=== PATIENT | male | born 1980 | race Two or more races ===

== ENCOUNTER 2024-05-27 00:03 | Inpatient (IN) | payer BC ==
[2024-05-27] MEDS ORDERED: ACETAMINOPHEN INJECTION 100 ML ONE (00:28)
[2024-05-27] MEDS: SODIUM CHLORIDE 1,000 ML IV STA (00:44)
[2024-05-27] MEDS: ACETAMINOPHEN 1000 MG/100 ML BAG IVPB ONE (00:44)
[2024-05-27] MEDS ORDERED: ALBUTEROL SO4 2.5/IPRATROPIUM 0.5 INH SOL 3 ML VIAL.NEB. NEB ONE (01:13)
[2024-05-27] MEDS ORDERED: DEXAMETHASONE SOD PHOSPHATE 10 MG/1 ML VIAL ONE (01:13)
[2024-05-27] MEDS: ALBUTEROL SO4 2.5/IPRATROPIUM 0.5 INH SOL 3 ML VIAL.NEB. NEB SCH (01:18)
[2024-05-27] MEDS: DEXAMETHASONE SOD PHOSPHATE 10 MG/1 ML VIAL IVPUSH ONE (01:18)
[2024-05-27 01:25] LABS: HEMATOCRIT 42.4 % (35.4-49); HEMOGLOBIN 14.6 GM/dL (11.7-16.9); MCH 30.9 pg (25.7-33.7); MCHC 34.4 g/dl (32.0-35.9); MEAN CELL VOLUME 89.7 fl (80-96); MEAN PLT VOLUME 7.9 fl (7.5-11.1); PLATELET COUNT 128 10^3/uL (134-434); RBC 4.73 M/mm3 (4.00-5.60); RDW 12.5 % (11.9-15.9); WHITE BLOOD COUNT 5.5 K/mm3 (4.0-10.0)
[2024-05-27] MEDS ORDERED: METOPROLOL TARTRATE 50 MG TABLET (FP) PO ONE (01:40)
[2024-05-27 01:46] LABS: POTASSIUM 3.7 mmol/L (3.5-5.1)
[2024-05-27 01:48] LABS: CALCIUM 8.5 mg/dL (8.5-10.1)
[2024-05-27 01:49] LABS: ALBUMIN 3.9 g/dl (3.4-5.0); BLOOD UREA NITROGEN 11.5 mg/dL (7-18)
[2024-05-27 01:51] LABS: CREATININE 1.2 mg/dL (0.55-1.3)
[2024-05-27 01:53] LABS: BILIRUBIN,TOTAL 1.1 mg/dL (0.2-1); TOT PROT 7.4 g/dl (6.4-8.2)
[2024-05-27] MEDS: SODIUM CHLORIDE 0.9% 500 ML INFUS.BAG IV ONE ×2 (02:12→02:13)
[2024-05-27] MEDS ORDERED: CEFTRIAXONE 1 G/50 ML PREMIX 50 ML IVPB ONE (03:05)
[2024-05-27] MEDS ORDERED: AZITHROMYCIN IVPB 500 MG/250 ML BAG IVPB ONE (03:05)
[2024-05-27] MEDS ORDERED: IBUPROFEN 600 MG TABLET (FP) PO ONE (03:05)
[2024-05-27] MEDS: IBUPROFEN 600 MG TABLET (FP) PO ONE (03:13)
[2024-05-27] MEDS: CEFTRIAXONE 1,000 MG in DEXTROSE 5%-WATER - 50 ML IVPB ONE (03:13)
[2024-05-27] MEDS: AZITHROMYCIN IVPB 500 MG in DEXTROSE 5%-WATER - 250 ML IVPB ONE (03:18)
[2024-05-27] MEDS ORDERED: MORPHINE SULFATE 2 MG/ML SYRINGE ONE (03:30)
[2024-05-27] MEDS ORDERED: MAGNESIUM SULFATE IN WATER 2 GM/50 ML IVPB IVPB ONE (03:31)
[2024-05-27] MEDS ORDERED: TERBUTALINE SULFATE 1 MG/1 ML VIAL SQ ONE (03:32)
[2024-05-27] MEDS: TERBUTALINE SULFATE 1 MG/1 ML VIAL SQ ONE (03:36)
[2024-05-27] MEDS: morphine SULFATE 4 MG/ML VIAL IVPUSH ONE (03:37)
[2024-05-27] MEDS: MAGNESIUM SULF 50% (8.12 MEQ/2 ML-1 GM VIAL) IVPB ONE (03:38)
[2024-05-27 03:47] LABS: VENOUS BASE EXCESS -5.1 mmol/L (-2-2); VENOUS O2 SATURATION 89.7 % (70-80); VENOUS PCO2 35.8 mmHg (38-52); VENOUS PH 7.356 (7.310-7.410)
[2024-05-27] MEDS ORDERED: ALBUTEROL SO4 0.083% IH SOL 2.5 MG/3 ML VIAL.NEB. NEB PRN (04:05)
[2024-05-27 04:09] LABS: ALLENS TEST POSITIVE; ARTERIAL BLD GAS O2 SATURATION 98.1 % (95-98); ARTERIAL BLOOD GAS BASE EXCESS -4.5 mmol/L (-2-2); ARTERIAL BLOOD GAS PO2 115.1 mmHg (80-100); ARTERIAL BLOOD GAS pH 7.362 (7.350-7.450)
[2024-05-27] MEDS: LACTATED RINGERS SOLUTION 1,000 ML/1,000 ML INFUS.BAG IV SCH (04:41)
[2024-05-27 06:11] VITALS: BMI 27.1
[2024-05-27] MEDS ORDERED: OSELTAMIVIR PHOSPHATE 45 MG CAPSULE PO SCH (10:00)
[2024-05-27] MEDS: ENOXAPARIN NA (PORCINE) 40 MG/0.4 ML DISP.SYRIN SQ SCH (10:01)
[2024-05-27] MEDS: OSELTAMIVIR PHOSPHATE 75 MG CAPSULE PO SCH (10:02)
[2024-05-27] MEDS: MUPIROCIN 2% TOPICAL OINTMENT FOR DECOLONIZATION NS SCH (10:02)
[2024-05-27] MEDS: AZITHROMYCIN IVPB 250 MG in DEXTROSE 5%-WATER - 250 ML IVPB SCH (22:33)
[2024-05-27] MEDS: ROSUVASTATIN CA 10 MG TABLET PO SCH (22:39)
[2024-05-27] MEDS: CEFTRIAXONE 1 G/50 ML PREMIX 50 ML IVPB SCH (22:39)
[2024-05-27] MEDS: CHLORHEXIDINE GLUCONATE 4% CLEANSER FOR DECOLONIZATION TP SCH (22:40)
[2024-05-28 07:30] LABS: MACROCYTOSIS 0
[2024-05-28 08:01] LABS: BASO % 0.1 % (0-2.0); HEMATOCRIT 41.9 % (35.4-49); HEMOGLOBIN 14.6 GM/dL (11.7-16.9); LYMPH % 8.4 % (8-40); MCHC 34.9 g/dl (32.0-35.9); MEAN CELL VOLUME 88.9 fl (80-96); MEAN PLT VOLUME 8.1 fl (7.5-11.1); NEUT % 86.5 % (42.8-82.8); PLATELET COUNT 162 10^3/uL (134-434); RBC 4.71 M/mm3 (4.00-5.60); RDW 12.9 % (11.9-15.9)
[2024-05-28 08:20] LABS: POTASSIUM 3.9 mmol/L (3.5-5.1)
[2024-05-28 08:27] LABS: INR 1.18 (0.83-1.09); PROTHROMBIN TIME (PATIENT) 13.5 SEC (9.7-13.0)
[2024-05-28 08:30] LABS: ALBUMIN 3.2 g/dl (3.4-5.0); BLOOD UREA NITROGEN 13.5 mg/dL (7-18); CALCIUM 8.6 mg/dL (8.5-10.1); MAGNESIUM 2.4 mg/dL (1.8-2.4)
[2024-05-28 08:33] LABS: BILIRUBIN,TOTAL 1.3 mg/dL (0.2-1); CREATININE 0.8 mg/dL (0.55-1.3); PHOSPHOROUS 1.8 mg/dL (2.5-4.9)
[2024-05-28 08:35] LABS: TOT PROT 6.6 g/dl (6.4-8.2)
[2024-05-28] MEDS: EMTRICITABINE 200MG/TENOFOVIR 300MG PO SCH (10:33)
[2024-05-28] MEDS: ACETAMINOPHEN 500 MG TABLET (FP) PO PRN (12:32)
[2024-05-28 14:24] LABS: HIV INTERPRETATION NEGATIVE (NEGATIVE)
[2024-05-29] MEDS: ENOXAPARIN NA (PORCINE) 40 MG/0.4 ML DISP.SYRIN SQ SCH (10:35)
[2024-05-29] MEDS: OSELTAMIVIR PHOSPHATE 75 MG CAPSULE PO SCH (10:35)
[2024-05-29] MEDS: EMTRICITABINE 200MG/TENOFOVIR 300MG PO SCH (11:18)
[2024-05-29] MEDS: ACETAMINOPHEN 500 MG TABLET (FP) PO PRN (17:46)
[2024-05-29] MEDS: MUPIROCIN 2% TOPICAL OINTMENT FOR DECOLONIZATION NS SCH (19:21)
[2024-05-29] MEDS: PNEUMOC 20-VAL CONJ-DIP CRM/PF 0.5 ML SYRINGE IM ONE (19:27)
[2024-05-29] MEDS: FLU VACCINE (FLULAVAL) PF 45 MCG/0.5 ML SYRINGE 2024-2025 IM ONE (19:27)
[2024-05-29] MEDS: CEFTRIAXONE 1 G/50 ML PREMIX 50 ML IVPB SCH (21:18)
[2024-05-29] MEDS: ROSUVASTATIN CA 10 MG TABLET PO SCH (21:18)
[2024-05-29] MEDS ORDERED: CHLORHEXIDINE GLUCONATE 4% CLEANSER FOR DECOLONIZATION TP SCH (22:00)
[2024-05-30] MEDS: FLU VACCINE (FLULAVAL) PF 45 MCG/0.5 ML SYRINGE 2024-2025 IM ONE (01:39)
[2024-05-30] MEDS: PNEUMOC 20-VAL CONJ-DIP CRM/PF 0.5 ML SYRINGE IM ONE (01:39)
[2024-05-30 09:56] LABS: HEMATOCRIT 43.8 % (35.4-49); HEMOGLOBIN 15.6 GM/dL (11.7-16.9); MCH 30.8 pg (25.7-33.7); MCHC 35.6 g/dl (32.0-35.9); MEAN CELL VOLUME 86.7 fl (80-96); MEAN PLT VOLUME 7.3 fl (7.5-11.1); PLATELET COUNT 218 10^3/uL (134-434); RBC 5.06 M/mm3 (4.00-5.60); RDW 12.7 % (11.9-15.9); WHITE BLOOD COUNT 6.5 K/mm3 (4.0-10.0)
[2024-05-30 10:27] LABS: POTASSIUM 3.5 mmol/L (3.5-5.1)
[2024-05-30 10:38] LABS: BLOOD UREA NITROGEN 17.6 mg/dL (7-18); CALCIUM 9.4 mg/dL (8.5-10.1)
[2024-05-30 10:39] LABS: ANISOCYTOSIS 0; HELMET CELLS 0; HOWELL-JOLLY BODIES 0; MACROCYTOSIS 0; OVALOCYTE 0; ROULEAU 0; SICKELED CELLS 0; TARGET CELLS 0; TEAR DROP CELLS 0; TOXIC GRANULATION 0
[2024-05-30 10:42] LABS: CREATININE 0.9 mg/dL (0.55-1.3)
[2024-05-30 22:05] VITALS: RESP 18
[2024-05-31] MEDS: guaiFENesin/D-METHORPHAN HB 10 ML UNIT-DOSE CUPS PO PRN (10:41)
[2024-05-31] MEDS: ALBUTEROL SO4 0.083% IH SOL 2.5 MG/3 ML VIAL.NEB. NEB PRN (18:22)
[2024-06-01 14:14] VITALS: BP 132/70; PULSE 94; TEMP 98
== END 2024-06-01 15:45 | disposition home or self-care (01) | DRG 871 ==
LOC: JER 00:03 → JERBED 02:17 → JICU 05:14 → J6W 05-29 09:32
PROVIDERS: ADMIT Internal Medicine Pulmonary Disease; ATTEND Family Medicine
DX: A41.9 Sepsis, unspecified organism (principal); J10.00 Influenza due to other identified influenza virus with unspecified type of pneumonia; J96.01 Acute respiratory failure with hypoxia; J98.11 Atelectasis; Z72.0 Tobacco use
CPT/HCPCS: 0241U-QW; 36415; 36600; 71045-TC-FY; 71275-TC; 80048; 80053; 82803; 82962; 83036; 83605; 83735; 84100; 84439; 84443; 84484; 85025; 85610; 85730; 87040; 87070; 87205; 87254; 87389; 87651; 87899; 93005; 93010; 94640; 94761; 99285-25; J0131; J1100; Q9967